=== PATIENT | male | born 1935 | race Hispanic/Latino ===

== ENCOUNTER 2017-03-22 13:45 | Inpatient (IN) | payer MEDICARE ==
[2017-03-22] MEDS ORDERED: Sodium Chloride 0.9% 500 ML IV STA (16:12)
[2017-03-22 16:57] LABS: BASO # 0.02 K/mm3 (0.0-2.0); BASO % 0.3 % (0.0-3.0); EOS # 0.1 (0.0-0.7); EOS % 1.1 % (1.5-5.0); GRAN # 4.84 (1.4-6.5); GRAN % 77.4 % (50.0-68.0); HEMOGLOBIN 14.7 g/dL (14.0-18.0); LYMPH # 0.8 (1.2-3.4); LYMPH % 12.6 % (22.0-35.0); MEAN CELL VOLUME 92.4 fl (80.0-105.0); MEAN CORPUSCULAR HEMOGLOBIN 31.8 pg (25.0-35.0); MEAN CORPUSCULAR HGB CONC 34.4 g/dl (31.0-37.0); MEAN PLATELET VOLUME 9.4 fl (7.0-11.0); MONO # 0.5 (0.1-0.6); MONO % 8.6 % (1.0-6.0); PLATELET COUNT 217 10^3/uL (120.0-450.0); RBC 4.62 10^6/uL (3.5-6.1); RED CELL DISTRIBUTION WIDTH 14.1 % (11.5-14.5); WHITE BLOOD COUNT 6.3 10^3/ul (4.5-11.0)
[2017-03-22 17:07] LABS: ALB/GLOB RATIO 1.5 (1.1-1.8); ALBUMIN 4.4 g/dL (3.0-4.8); ALT/SGPT 28 U/L (7-56); AST/SGOT 23 U/L (15-59); BLOOD UREA NITROGEN 20 mg/dL (7-21); CALCIUM 9.5 mg/dL (8.4-10.5); GFR AFRICAN-AMERICAN > 60; GFR NON-AFRICAN AMERICAN > 60
[2017-03-22 17:21] LABS: TROPONIN I < 0.01 ng/mL
--- NOTE | 2017-03-22 17:44 | CT ---
PROCEDURE: CT HEAD WITHOUT CONTRAST. HISTORY: forgetfulness/ tachycardia COMPARISON: Noncontrast head ct 12/23/12 TECHNIQUE: Axial computed tomography images were obtained through the head/brain without intravenous contrast. Radiation dose: Total exam DLP = 852.94 MGy-cm. This CT exam was performed using one or more of the following dose reduction techniques: Automated exposure control, adjustment of the mA and/or kV according to patient size, and/or use of iterative reconstruction technique. FINDINGS: HEMORRHAGE: No intracranial hemorrhage. BRAIN: Diffuse atrophy with prominence of the ventricles and sulci noted. No mass effect or edema. Intracranial atherosclerotic calcifications. Mild scattered white matter hypodensities, which are nonspecific, but often seen with chronic microvascular ischemic disease. Please note that MRI with diffusion imaging is more sensitive in the detection of acute ischemic event. VENTRICLES: No hydrocephalus. CALVARIUM: Unremarkable. PARANASAL SINUSES: Mucosal thickening of the ethmoid air cells and right maxillary sinus. MASTOID AIR CELLS: Opacification/fluid within bilateral mastoid air cells. OTHER FINDINGS: None. IMPRESSION: Generalized atrophy. Mild scattered nonspecific white matter changes. Opacification/fluid within bilateral mastoid air cells. Correlate clinically for mastoiditis. Mucosal thickening of the ethmoid air cells and right maxillary sinus. Correlate clinically for sinusitis.
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
[2017-03-22] MEDS ORDERED: Enoxaparin 100 mg Syringe SC STA (18:21)
--- NOTE | 2017-03-22 18:43 | RAD ---
HISTORY: Tachycardia. Portable study 16:10. COMPARISON: 12/23/2012 FINDINGS: LUNGS: No active pulmonary disease. PLEURA: No significant pleural effusion identified, no pneumothorax apparent. CARDIOVASCULAR: Cardiomegaly. No evidence of acute, significant cardiovascular disease. OSSEOUS STRUCTURES: No significant abnormalities. VISUALIZED UPPER ABDOMEN: Normal. OTHER FINDINGS: None. IMPRESSION: No active disease. No significant interval change compared to the prior examination(s).
[2017-03-23 00:17] VITALS: BMI 32.6
[2017-03-23 03:44] LABS: URINE BILIRUBIN NEGATIVE (NEGATIVE); URINE BLOOD TRACE-LYSED (NEGATIVE); URINE GLUCOSE (UA) NEGATIVE (NEGATIVE); URINE LEUKOCYTE ESTERASE NEGATIVE Leu/uL (NEGATIVE); URINE NITRATE NEGATIVE (NEGATIVE); URINE PROTEIN NEGATIVE mg/dL (<30 mg/dL); URINE UROBILINOGEN 0.2 E.U./dL (<1 E.U./dL)
[2017-03-23 03:56] LABS: URINE APPEARANCE CLEAR (CLEAR); URINE COLOR YELLOW (YELLOW)
[2017-03-23 04:03] LABS: URINE EPITHELIAL CELLS 0 - 2 /hpf (0-5); URINE WBC 0 - 2 /hpf (0-6)
[2017-03-23 07:04] LABS: HDL CHOLESTEROL 39 mg/dL (29-60)
[2017-03-23 07:14] LABS: LDL CHOLESTEROL 107 mg/dL (0-129)
[2017-03-23 07:16] LABS: TROPONIN I < 0.01 ng/mL
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
[2017-03-23] MEDS: Enoxaparin 100 mg Syringe SC SCH ×2 (11:22→23:20)
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
--- NOTE | 2017-03-23 23:32 | CARD ---
APPROVED REPORT EKG Measurement Heart [id number] NM P96 [id number] <Conclusion> Atrial flutter with variable AV block Prolonged QT Abnormal ECG
--- NOTE | 2017-03-23 23:56 | CARD ---
APPROVED REPORT EKG Measurement Heart [id number] FL P115 [id number] [id number] <Conclusion> Atrial flutter with variable AV block Abnormal ECG
--- NOTE | 2017-03-23 23:56 | CARD ---
APPROVED REPORT EKG Measurement Heart [id number] CK027K-2 [id number] <Conclusion> Atrial flutter with 2:1 conduction Abnormal ECG
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
--- NOTE | 2017-03-24 08:24 | PN ---
SUBJECTIVE: The events of last night were noted. The patient is on one-to-one. He tried to elope. He also had a nurse. The patient has no complaints of any chest pain or shortness of breath. He seems to have advanced dementia. PHYSICAL EXAMINATION: VITAL SIGNS: Temperature is 98, pulse of 121, blood pressure 138/80 and respirations 18. GENERAL: The patient is lying in bed, flat, comfortable. HEENT: No oral lesion. Anicteric sclerae. Moist mucosa. NECK: No JVD, adenopathy, or thyromegaly. CARDIOVASCULAR: S1 and S2, regular. No murmurs, rubs, or gallops. LUNGS: Clear to auscultation bilaterally. No wheeze, rales, or rhonchi. ABDOMEN: Bowel sounds are positive, soft, nontender and nondistended. EXTREMITIES: No cyanosis, clubbing or edema. LABORATORY DATA: Echo is pending. ASSESSMENT: 1. Dementia with agitation. 2. Atrial flutter. 3. Obesity with a BMI of 32. PLAN: The patient is being followed by Dr. Smith for his atrial flutter. The patient is on Lopressor twice a day. He is going to continue with Risperdal. I have asked Dr. Hoang to evaluate the patient. The patient is on Xanax twice a day. I have asked Dr. Simth, the patient's neurologist, to see the patient. The patient is on a heart healthy diet. I did speak to the patient's brother yesterday to give him an update. The patient lives alone and is not able to go home. He feels that he is dangerous to himself. Landry Ivory MD
[2017-03-24] MEDS: Enoxaparin 100 mg Syringe SC SCH (09:22)
--- NOTE | 2017-03-24 09:37 | CARD ---
APPROVED REPORT EXAM: Two-dimensional and M-mode echocardiogram with Doppler and color Doppler. INDICATION A-FLUTTER 2D DIMENSIONS Left Atrium (2D)4.8 (1.6-4.0cm)IVSd1.4 (0.7-1.1cm) LVDd4.7 (3.9-5.9cm)PWd1.4 (0.7-1.1cm) LVDs3.6 (2.5-4.0cm)FS (%) 23.1 % LVEF (%)46.4 (>50%) M-Mode DIMENSIONS Aortic Root3.30 (2.2-3.7cm)Aortic Cusp Exc.1.00 (1.5-2.0cm) Aortic Valve AoV Peak Qgaontfg228.0cm/Baljinder Peak GR.6mmHg Mitral Valve E/A ratio0.0 TDI E/Lateral E'0.0E/Medial E'0.0 Tricuspid Valve TR Peak [id number]/sRAP [id number] Peak Gr.15mmHg [id number] LEFT VENTRICLE The left ventricle is normal size. There is mild concentric left ventricular hypertrophy. The left ventricular function is normal. The left ventricular ejection fraction is within the normal range. There is normal LV segmental wall motion. RIGHT VENTRICLE The right ventricle is normal size. The right ventricular systolic function is normal. ATRIA The left atrium is moderately dilated. The right atrium is mildly dilated. The interatrial septum is intact with no evidence for an atrial septal defect. AORTIC VALVE The aortic valve is moderately sclerotic. There is mild aortic regurgitation. There is no aortic valvular stenosis. MITRAL VALVE The mitral valve is normal in structure. Mitral regurgitation is mild. TRICUSPID VALVE The tricuspid valve is normal in structure. PULMONIC VALVE The pulmonary valve is normal in structure. GREAT VESSELS The aortic root is normal in size. The IVC is normal in size and collapses >50% with inspiration. PERICARDIAL EFFUSION There is no pleural effusion. There is no pericardial effusion. <Conclusion> Biatrial enlargement. Normal LV size and systolic function. Mild concentric LVH. Mild MR. Mild AI.
--- NOTE | 2017-03-24 16:26 | PN ---
DATE: 03/24/2017 SUBJECTIVE: The patient is seen lying in bed, on telemetry. He remains in a [place] bed. He appears pleasantly confused. CURRENT MEDICATIONS: Include metoprolol 25 mg b.i.d., Lovenox, Risperdal and Xanax. OBJECTIVE: GENERAL: He is an elderly man who appears comfortable at rest. VITAL SIGNS: Blood pressure is 176/120, but has been 102/74, pulse of 120 in atrial flutter with respirations are 14. He is afebrile. HEENT: No JVD. CHEST: Bilateral scattered rhonchi. HEART: PMI displaced laterally with systolic murmur noted at the apex. ABDOMEN: Soft, nontender with normoactive bowel sounds. EXTREMITIES: No edema. DIAGNOSTIC DATA: Blood work is pending from this morning. Thyroid profile was normal yesterday. Cardiac enzymes were negative. Echocardiogram was reviewed showing evidence of biatrial enlargement with mild concentric LVH, normal LV size and systolic function. Mild mitral and aortic insufficiency were present. IMPRESSION: 1. Atrial flutter with inadequate heart rate control. 2. Paroxysmal episodes of uncontrolled hypertension. 3. Altered mental status, workup in progress. RECOMMENDATIONS: 1. His metoprolol dose will be increased in an attempt to improve heart rate control. 2. Pending his neurology evaluation, the decision would need to be made regarding chronic anticoagulation given his thromboembolic risk. 3. We will continue to follow. We will make further recommendations as appropriate. Gonzalo Mcdowell MD
[2017-03-25] MEDS: Enoxaparin 100 mg Syringe SC SCH ×3 (00:17→21:11)
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
--- NOTE | 2017-03-25 08:10 | CP.PCM.PN ---
Subjective - Date & Time of Evaluation Date of Evaluation: 03/25/17 Time of Evaluation: 07:00 - Subjective Subjective: Sedated on 2R with 1:1 sitter. He was agitated and combative during the night. Would not keep the tel monitor on. I spoke with his bedside nurse. V/S noted. Was A. Flutter during the time he wore the monitor. PE: Lungs: clear anteriorly Cor.: irreg. S1S2 Abd.: soft Ext.: no edema Neuro.: sedated I/O= 1120/1050 labs noted: trops.x2 neg., TSH NL Echo: NL LV with mild conc. LVH, mild MR Objective - Vital Signs/Intake and Output Vital Signs (last 24 hours): Temp Pulse Resp BP Pulse Ox 98.1 F 120 H 19 139/82 100 03/24/17 17:47 03/24/17 19:00 03/24/17 17:47 03/24/17 19:00 03/24/17 06:00 - Medications Medications: Current Medications Alprazolam (Xanax) 0.5 mg PO BID HAIDER PRN Reason: Protocol Last Admin: 03/24/17 19:00 Dose: 0.5 mg Enoxaparin Sodium (Lovenox) 90 mg SC Q12H HAIDER PRN Reason: Protocol Last Admin: 03/25/17 00:17 Dose: 90 mg Metoprolol Tartrate (Lopressor) 50 mg PO BID HAIDER Last Admin: 03/24/17 19:00 Dose: 50 mg Risperidone (Risperdal Tab) 0.25 mg PO AMHS HAIDER PRN Reason: Protocol Last Admin: 03/25/17 00:18 Dose: 0.25 mg Assessment and Plan - Assessment and Plan (Free Text) Assessment: AMS/Delerium/Dementia A. Flutter HBP Plan: As per Dr. Ivory, Dr. Hoang and Dr. Smith Continue PO metoprolol. Titrate dose to control HR Continue Lovenox for now. [facility] A/C to be considered as well. 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 It appears that he will no longer be able to live alone.
--- NOTE | 2017-03-25 09:37 | PN ---
DATE: 03/25/2017 SUBJECTIVE: The patient has no complaints of any chest pain, no shortness of breath, no headaches, or dizziness. PHYSICAL EXAMINATION VITAL SIGNS: Temperature is 98.1, pulse of 120, blood pressure 139/82 and respirations 19. GENERAL: The patient is lying in bed, flat, comfortable. HEENT: No oral lesion. Anicteric sclerae. Moist mucosa. NECK: No JVD, adenopathy, or thyromegaly. CARDIOVASCULAR: S1 and S2, regular. No murmurs, rubs, or gallops. LUNGS: Clear to auscultation bilaterally. No wheeze, rales, or rhonchi. ABDOMEN: Bowel sounds are positive, soft, nontender and nondistended. EXTREMITIES: no cyanosis, clubbing or edema. LABORATORY DATA: White count is 6.3 and hemoglobin 14.7. ASSESSMENT: 1. Dementia with agitation. 2. Atrial flutter. 3. Obesity with a BMI of 32. PLAN: The patient is currently comfortable. He has atrial flutter. The patient is on Lovenox for anticoagulation. He is going to be on metoprolol, but the patient is going to continue with Xanax. He is on a heart healthy diet. I will get Dr. Thomson to evaluate the patient. The patient needs to be on anticoagulation therapy given that he has underlying dementia, I am not sure if he is going to be compliant with his medications. He has not been seen by Dr. Smith, I am not sure if he comes to the hospital anymore, so I will get Dr. Thomson. Landry Ivory MD
--- NOTE | 2017-03-25 18:30 | CON ---
DATE: 03/25/2017 CHIEF COMPLAINT: Evaluated for dementia, history of recent atrial flutter, for anticoagulation. HISTORY OF PRESENT ILLNESS: This is an 81-year-old man with history of dementia was seen possibly Alzheimer's type with recent diagnosis of atrial flutter. He was tachycardic when he came in. He presented to the hospital with heart rate of 130s and was controlled by Cardizem. Currently, he is alert and oriented to person and place, not much month or year. Recall after 5 minutes is 0 out of 3. Thought process is very tangential and very verbose. He has had history of recent falls, though his strength in the upper and lower extremities are intact. No paraesthesia in extremities at this time. CT head show no intracranial abnormalities. EKG showed atrial flutter. REVIEW OF SYSTEMS: A 14-point review of system is negative except as in the HPI. ALLERGIES: NO KNOWN DRUG ALLERGIES. PAST MEDICAL HISTORY: Dementia and anxiety. SOCIAL HISTORY: No illicit drug use, smoking, or EtOH abuse. MEDICATIONS: Reviewed by the nurse reconciliation sheet. PHYSICAL EXAMINATION: VITAL SIGNS: Temperature 97.4, pulse rate 90, blood pressure 132/84, respiratory rate of 20. GENERAL: The patient is sitting up in bed, in no acute distress. HEENT: Head is atraumatic and normocephalic. PERRLA. Extraocular muscles intact. NECK: Supple. No JVD. No adenopathy noted. LUNGS: Clear to auscultation. No adventitious sounds. HEART: S1 and S2, irregular rate and rhythm. No murmurs, rubs, or gallops. ABDOMEN: Soft, nontender, and nondistended. Bowel sounds present. EXTREMITIES: No clubbing, no cyanosis. Peripheral pulses 2+ felt bilaterally. NEUROLOGIC: The patient is alert and oriented to person and place, not much to month or year. Recall after 5 minutes is 0 out of 3. Does not know the year. He is very confabulate and very tangential and verbose. His insight is poor. Cranial nerves II through XII intact. Speech is fluent without any errors. Motor exam, slight increase tone. Moves all extremities equally. No pronator drift seen. Sensory exam, light touch, pinprick, proprioception, vibration intact. DTRs are 2+ throughout and 1 at the ankles. Coordination, [id number] intact. Gait is deferred for now. LABORATORY DATA: Sodium is 142, potassium 4, chloride of 105, carbon dioxide of 25, BUN of 20, creatinine 0.8, random glucose of 95. ASSESSMENT AND PLAN: This is an 81-year-old man with history of dementia likely Alzheimer's type with CAT scan generalized atrophy with no acute intracranial abnormality came in for heart rate of more than 30 status post Cardizem has atrial flutter. At this time, his gait is poor, balance is likely secondary to deconditioned state and he would possibly require Coumadin as anticoagulant given that he has atrial flutter which has increased risk of stroke. Recommend Coumadin over Eliquis since we have proper reversal as he falls. Need psychiatric clearance for competency as well for his management of his medical issues, but consider that he may need to be long-term care since he lives at home by himself. His mental status is more of a dementia with behavioral disturbance. At this time, he could benefit from Seroquel 12.5 mg p.o. at bedtime in addition to Risperdal, but would recommend to follow with psych in regards to that. At this time, continue present medical management. Thank you for this consult. Conor Thomson MD
[2017-03-26 05:59] LABS: HEMOGLOBIN 13.9 g/dL (14.0-18.0); MEAN CELL VOLUME 93.6 fl (80.0-105.0); MEAN CORPUSCULAR HEMOGLOBIN 31.6 pg (25.0-35.0); MEAN CORPUSCULAR HGB CONC 33.7 g/dl (31.0-37.0); MEAN PLATELET VOLUME 10.2 fl (7.0-11.0); RBC 4.4 10^6/uL (3.5-6.1); RED CELL DISTRIBUTION WIDTH 14.5 % (11.5-14.5); WHITE BLOOD COUNT 5.6 10^3/ul (4.5-11.0)
[2017-03-26 06:15] LABS: ALB/GLOB RATIO 1.3 (1.1-1.8); ALBUMIN 3.7 g/dL (3.0-4.8); ALT/SGPT 32 U/L (7-56); AST/SGOT 25 U/L (15-59); BLOOD UREA NITROGEN 16 mg/dL (7-21); CALCIUM 9.1 mg/dL (8.4-10.5); GFR AFRICAN-AMERICAN > 60; GFR NON-AFRICAN AMERICAN > 60
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
--- NOTE | 2017-03-26 08:17 | CP.PCM.PN ---
Subjective - Date & Time of Evaluation Date of Evaluation: 03/26/17 Time of Evaluation: 07:00 - Subjective Subjective: Less agitated yesterday by report. V/S noted. A. Flutter 100 - 120's PE: Lungs: clear anteriorly Cor.: irreg. S1S2 Abd.: soft Ext.: no edema Neuro.: sedated I/O= 1360/1450 labs noted: trops.x2 neg., TSH NL Echo: NL LV with mild conc. LVH, mild MR Objective - Vital Signs/Intake and Output Vital Signs (last 24 hours): Temp Pulse Resp BP Pulse Ox 97.6 F 122 H 20 121/81 97 03/26/17 06:00 03/26/17 06:00 03/26/17 06:00 03/26/17 06:00 03/25/17 22:39 - Medications Medications: Current Medications Alprazolam (Xanax) 0.5 mg PO BID HAIDER PRN Reason: Protocol Last Admin: 03/25/17 17:35 Dose: 0.5 mg Apixaban (Eliquis) 5 mg PO BID HAIDER PRN Reason: Protocol Metoprolol Tartrate (Lopressor) 75 mg PO BID HAIDER Risperidone (Risperdal Tab) 0.25 mg PO AMHS HAIDER PRN Reason: Protocol Last Admin: 03/25/17 21:11 Dose: 0.25 mg - Labs Labs: 03/26/17 05:30 03/26/17 05:30 Assessment and Plan - Assessment and Plan (Free Text) Assessment: AMS/Delerium/Dementia A. Flutter HBP Plan: As per Dr. Ivory, Dr. Hoang and Dr. Thomson Increase PO metoprolol to 75 BID. Titrate dose to control HR Continue Eliquis as long as he will be in a protected environment. If fall risk is considered high, would reconsider A/C. Neuro preference for warfarin noted.We might consider switching to Pradaxa since a reversal agent is available for it. 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 It appears that he will no longer be able to live alone.
--- NOTE | 2017-03-26 15:18 | PN ---
SUBJECTIVE: The patient is an 81-year-old demented white male who has been quite disorganized in his thinking and occasionally agitated. I have discussed his case with nursing. The patient can get agitated, but has not been such since yesterday and is manageable presently. He is alert, has no recollection of who I am, does indicate he is in the hospital, but does not where and is disoriented to time. He has one-on-one sitter. Psychotropically, he has been maintained on Xanax 0.5 mg b.i.d. and Risperdal 0.5 mg a.m. and at bedtime. I will maintain him on this for now as the patient's behavior is not presently problematic. I will write for an Ativan p.r.n., however. Pulse elevated at 122, blood pressure 131/81, temperature 97.6, respiratory rate 20. Oskar Hoang MD/ PhD
--- NOTE | 2017-03-27 13:42 | PN ---
DATE: 03/27/2017 SUBJECTIVE: The patient has no complains of any chest pain. No shortness of breath. He remains confused. He is able to talk, but he is tangential on his thoughts. PHYSICAL EXAMINATION: VITAL SIGNS: Temperature is 97.6, pulse of 117, blood pressure 123/69, respirations 20. GENERAL: The patient is lying in bed, flat, comfortable. HEENT: No oral lesion. Anicteric sclerae. Moist mucosa. NECK: No JVD, adenopathy, or thyromegaly. CARDIOVASCULAR: S1 and S2, regular. No murmurs, rubs, or gallops. LUNGS: Clear to auscultation bilaterally. No wheeze, rales, or rhonchi. ABDOMEN: Bowel sounds are positive, soft, nontender and nondistended. EXTREMITIES: no cyanosis, clubbing or edema. LABS: White count of 5.6, hemoglobin 13.9, creatinine is 0.8. ASSESSMENT: 1. Dementia Alzheimer's type. 2. Atrial flutter. 3. Obesity with body mass index of 32. PLAN: The patient is currently comfortable. He is on Xanax twice a day and Risperdal twice a day and he is being followed by psychiatry. He was seen by Dr. Berkowitz. He is on Eliquis for atrial flutter. He is on one-to-one, I will continue, and he is on heart healthy diet. He is ready for discharge to a long-term care facility. Landry Ivory MD
--- NOTE | 2017-03-29 03:24 | PN ---
DATE: 03/28/2017 SUBJECTIVE: The patient has no complains of any chest pain. No shortness of breath. No headache or dizziness. PHYSICAL EXAMINATION VITAL SIGNS: Temperature is 98, pulse of 81, blood pressure is 115/75, and respirations 18. GENERAL: The patient is lying in bed, flat, comfortable. HEENT: No oral lesion. Anicteric sclerae. Moist mucosa. NECK: No JVD, adenopathy, or thyromegaly. CARDIOVASCULAR: S1 and S2, regular. No murmurs, rubs, or gallops. LUNGS: Clear to auscultation bilaterally. No wheeze, rales, or rhonchi. ABDOMEN: Bowel sounds are positive, soft, nontender and nondistended. EXTREMITIES: No cyanosis, clubbing or edema. LABORATORY DATA: White count of 5.6 and hemoglobin 13.9. Creatinine 0.8. ASSESSMENT: 1. Dementia Alzheimer's type. 2. Atrial flutter. 3. Obesity with body mass index of 32. PLAN: The patient is on Ativan. He is going to continue Eliquis for his atrial flutter. He is on Risperdal and Xanax. He is waiting for discharge planning to a facility for long-term care. Landry Ivory MD
--- NOTE | 2017-03-29 12:22 | PN ---
DATE: 03/29/2017 SUBJECTIVE: The patient has no complaints of any chest pain. No shortness of breath. No headaches. PHYSICAL EXAMINATION: VITAL SIGNS: Temperature is 97.6, pulse of 108, blood pressure is 114/66 and respirations are 20. GENERAL: The patient is lying in bed, flat, comfortable. HEENT: No oral lesion. Anicteric sclerae. Moist mucosa. NECK: No JVD, adenopathy, or thyromegaly. CARDIOVASCULAR: S1 and S2, regular. No murmurs, rubs, or gallops. LUNGS: Clear to auscultation bilaterally. No wheeze, rales, or rhonchi. ABDOMEN: Bowel sounds are positive, soft, nontender and nondistended. EXTREMITIES: No cyanosis, clubbing or edema. ASSESSMENT: 1. Dementia Alzheimer's type. 2. Atrial flutter on anticoagulation with Eliquis. 3. Obesity with body mass index of 32. PLAN: The patient is on Eliquis, this will be continued. He is on metoprolol. His confusion is controlled. He did have agitation secondary to his delirium. He is on risperidone and Xanax that he is on heart healthy diet. Landry Ivory MD
--- NOTE | 2017-03-30 06:46 | PN ---
DATE: 03/30/2017 SUBJECTIVE: The patient has no complaints of any chest pain. No shortness of breath. No headaches. No dizziness. PHYSICAL EXAMINATION: VITAL SIGNS: Temperature is 97.9, pulse of 92, blood pressure is 138/83 and respirations are 20. GENERAL: The patient is lying in bed, flat, comfortable. HEENT: No oral lesion. Anicteric sclerae. Moist mucosa. NECK: No JVD, adenopathy, or thyromegaly. CARDIOVASCULAR: S1 and S2, regular. No murmurs, rubs, or gallops. LUNGS: Clear to auscultation bilaterally. No wheeze, rales, or rhonchi. ABDOMEN: Bowel sounds are positive, soft, nontender and nondistended. EXTREMITIES: No cyanosis, clubbing or edema. ASSESSMENT: 1. Dementia, Alzheimer's type with agitation, improved. 2. Atrial flutter, on Eliquis. 3. Obesity with a body mass index of 32. PLAN: The patient is currently comfortable. He is waiting for discharge to a long-term care facility. He is on Eliquis. He is going to continue with metoprolol. He is on risperidone 0.25 mg twice a day and then Xanax 0.5 mg twice a day. Landry Ivory MD
[2017-03-31 06:59] LABS: HEMOGLOBIN 14.2 g/dL (14.0-18.0); MEAN CELL VOLUME 93.8 fl (80.0-105.0); MEAN CORPUSCULAR HEMOGLOBIN 31.6 pg (25.0-35.0); MEAN CORPUSCULAR HGB CONC 33.6 g/dl (31.0-37.0); MEAN PLATELET VOLUME 9.8 fl (7.0-11.0); RBC 4.5 10^6/uL (3.5-6.1); RED CELL DISTRIBUTION WIDTH 14.2 % (11.5-14.5); WHITE BLOOD COUNT 6.6 10^3/ul (4.5-11.0)
[2017-03-31 07:21] LABS: ALB/GLOB RATIO 1.3 (1.1-1.8); ALBUMIN 3.8 g/dL (3.0-4.8); ALT/SGPT 37 U/L (7-56); AST/SGOT 23 U/L (15-59); BLOOD UREA NITROGEN 22 mg/dL (7-21); CALCIUM 9.3 mg/dL (8.4-10.5); GFR AFRICAN-AMERICAN > 60; GFR NON-AFRICAN AMERICAN > 60
--- NOTE | 2017-03-31 10:39 | PN ---
DATE: 03/31/2017 SUBJECTIVE: The patient has no complaints of any chest pain. No shortness of breath. No headaches. No dizziness. PHYSICAL EXAMINATION: VITAL SIGNS: Temperature is 97.5, pulse of 60, blood pressure is 105/69, and respirations are 21. GENERAL: The patient is lying in bed, flat, comfortable. HEENT: No oral lesion. Anicteric sclerae. Moist mucosa. NECK: No JVD, adenopathy, or thyromegaly. CARDIOVASCULAR: S1 and S2, regular. No murmurs, rubs, or gallops. LUNGS: Clear to auscultation bilaterally. No wheeze, rales, or rhonchi. ABDOMEN: Bowel sounds are positive, soft, nontender, and nondistended. EXTREMITIES: no cyanosis, clubbing, or edema. LABS: Creatinine 0.9. ASSESSMENT: 1. Dementia, Alzheimer's type, with agitation, improved. 2. Atrial flutter, on Eliquis. 3. Obesity with body mass index of 32. PLAN: The patient is currently on Risperdal. He is also on the Xanax for his agitation. He is off his one-to-one. The patient is on Eliquis for his atrial flutter. He is on a heart healthy diet, waiting for placement. Landry Ivory MD
[2017-03-31 17:06] VITALS: RESP 20
--- NOTE | 2017-03-31 17:41 | CP.PCM.CON ---
History of Present Illness - History of Present Illness History of Present Illness: Patient is 81 year old male w/ PMHx of Dementia (likely Alzheimer's type) and recent diagnosis of atrial flutter. who [facility] asking to get an MRI done. Patient had no complaints. EKG found Atrial flutter w/ HR in the 130s and he was. We were asked to see this patient by hospitalist team to be evaluated for confusion and agitation. During interview patient was sitting in bed with calm wearing a hospital gown. He was disoriented to time. Patient denied any issue with mood during the interview. 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 He denied any auditory or visual hallucinations, denies any depressive symptoms. ROS: Denies CP, SOB, Abdoinal Pain, Fevers, Chills Past Psychiatric History: Denies PMH: Above PSH: Non-Contributory Allergies: NKDA Social History: Denies Drug use, smoking, or alcohol use Family Hx: Meds: Reviewed by nurse reconciliation sheet Past History obtained from chart: Review of Systems - Constitutional Constitutional: As Per HPI - Cardiovascular Cardiovascular: As Per HPI - Respiratory Respiratory: As Per HPI - Psychiatric Psychiatric: As Per HPI Past Patient History - Infectious Disease Hx of Infectious Diseases: None - Tetanus Immunizations Tetanus Immunization: Unknown - Past Social History Smoking Status: Never Smoked - CARDIAC Hx Cardiac Disorders: No - PULMONARY Hx Respiratory Disorders: No - NEUROLOGICAL Hx Neurological Disorder: Yes (memory loss, uses eyeglasses) - HEENT Hx HEENT Problems: No - RENAL Hx Chronic Kidney Disease: No - ENDOCRINE/METABOLIC Hx Endocrine Disorders: No - HEMATOLOGICAL/ONCOLOGICAL Hx Blood Disorders: No - INTEGUMENTARY Hx Dermatological Problems: No - MUSCULOSKELETAL/RHEUMATOLOGICAL Hx Musculoskeletal Disorders: Yes Hx Unsteady Gait: Yes (uses cane) - GASTROINTESTINAL Hx Gastrointestinal Disorders: No - GENITOURINARY/GYNECOLOGICAL Hx Genitourinary Disorders: No - PSYCHIATRIC Hx Depression: No Hx Emotional Abuse: No Hx Physical Abuse: No Hx Substance Use: No - SURGICAL HISTORY Hx Surgeries: No Meds Allergies/Adverse Reactions: Allergies Allergy/AdvReac Type Severity Reaction Status Date / Time No Known Allergies Allergy Verified 06/08/12 07:29 - Medications Medications: Current Medications Alprazolam (Xanax) 0.5 mg PO BID HAIDER PRN Reason: Protocol Last Admin: 03/31/17 10:56 Dose: 0.5 mg Apixaban (Eliquis) 5 mg PO BID HAIDER PRN Reason: Protocol Last Admin: 03/31/17 10:56 Dose: 5 mg Lorazepam (Ativan) 0.5 mg PO Q4H PRN PRN Reason: Agitation Last Admin: 03/31/17 00:19 Dose: 0.5 mg Metoprolol Tartrate (Lopressor) 75 mg PO BID HAIDER Last Admin: 03/31/17 10:56 Dose: 75 mg Risperidone (Risperdal Tab) 0.25 mg PO AMHS HAIDER PRN Reason: Protocol Last Admin: 03/31/17 10:56 Dose: 0.25 mg Physical Exam - Psychiatric Exam Additional comments: Appearance - Patient was sitting in hospital gown Speech: normal rate, volume, and articulate Mood: Euthymic Affect: appropriate to situation Thought process - tangential THought Content - No auditory, visual, or tactile hallucinations. Free of delusions Insight - impaired Judgement - impaired Results - Vital Signs Recent Vital Signs: Last Vital Signs Temp 97.5 F L 03/31/17 17:06 Pulse 79 03/31/17 17:06 Resp 20 03/31/17 17:06 BP 102/64 03/31/17 17:06 Pulse Ox 99 03/31/17 17:06 - Labs Result Diagrams: 03/31/17 06:15 03/31/17 06:15 Labs: Laboratory Results - last 24 hr 03/31/17 03/31/17 06:15 06:15 WBC 6.6 RBC 4.50 Hgb 14.2 Hct 42.2 MCV 93.8 MCH 31.6 MCHC 33.6 RDW 14.2 Plt Count 215 MPV 9.8 Sodium 143 Potassium 4.3 Chloride 105 Carbon Dioxide 27 Anion Gap 15 BUN 22 H Creatinine 0.9 Est GFR ( Amer) > 60 Est GFR (Non-Af Amer) > 60 Random Glucose 94 Calcium 9.3 Total Bilirubin 0.8 AST 23 ALT 37 Alkaline Phosphatase 73 Total Protein 6.7 Albumin 3.8 Globulin 2.9 Albumin/Globulin Ratio 1.3 Assessment & Plan - Assessment and Plan (Free Text) Assessment: 81 year old male, aditted for atrial flutter. Consult for evaluation and treatent of agitation and anxiety. Plan: 1. 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 Please feel free to reconsult of necessary Patient seen, examined, and discussed with Attending. Radha Muhammad PGY1
--- NOTE | 2017-04-01 07:41 | PN ---
DATE: 04/01/2017 SUBJECTIVE: The patient has no complaints of any chest pain or shortness of breath. No headaches or dizziness. He has no nausea. He has been eating well. PHYSICAL EXAMINATION: VITAL SIGNS: Temperature is 97.5, pulse is 79, blood pressure 102/64, respirations 20. GENERAL: The patient is lying in bed, flat, comfortable. HEENT: No oral lesion. Anicteric sclerae. Moist mucosa. NECK: No JVD, adenopathy, or thyromegaly. CARDIOVASCULAR: S1 and S2, regular. No murmurs, rubs, or gallops. LUNGS: Clear to auscultation bilaterally. No wheeze, rales, or rhonchi. ABDOMEN: Bowel sounds are positive, soft, nontender and nondistended. EXTREMITIES: No cyanosis, clubbing or edema. ASSESSMENT: 1. Dementia, Alzheimer's type with agitation, improved. 2. Atrial flutter on Eliquis. 3. Obesity with a BMI of 32. PLAN: The patient is currently comfortable. He is off his one-to-one successfully. He is waiting for long-term placement. The patient is on Eliquis for his anticoagulation. He is on metoprolol that will be continued. He is on Risperdal. He is on Xanax as well. No other issues. Landry Ivory MD
--- NOTE | 2017-04-02 09:24 | PN ---
DATE: 04/02/2017 SUBJECTIVE: The patient has no complaints of any chest pain. No shortness of breath. PHYSICAL EXAMINATION: VITAL SIGNS: Temperature is 97.6, pulse of 93, blood pressure 113/74, respirations 20. GENERAL: The patient is lying in bed, flat, comfortable. HEENT: No oral lesion. Anicteric sclerae. Moist mucosa. NECK: No JVD, adenopathy, or thyromegaly. CARDIOVASCULAR: S1 and S2, regular. No murmurs, rubs, or gallops. LUNGS: Clear to auscultation bilaterally. No wheeze, rales, or rhonchi. ABDOMEN: Bowel sounds are positive, soft, nontender and nondistended. EXTREMITIES: No cyanosis, clubbing or edema. ASSESSMENT: 1. Dementia, Alzheimer's type with agitation, improved. 2. Atrial flutter, on Eliquis. 3. Obesity with a body mass index of 32. PLAN: The patient is currently comfortable. He is on Eliquis for his anticoagulation. He is going to continue with risperidone and Xanax. He is on a heart healthy diet. He is waiting for a placement. Landry Ivory MD
[2017-04-02 16:32] VITALS: BP 126/65; PULSE 81; TEMP 97.9; O2SAT 98
== END 2017-04-02 17:35 | DRG 309 ==
LOC: ED 13:45 → ERH 18:06 → 2RNO 22:58 → 5RSO 03-26 14:28
PROVIDERS: ADMIT Internal Medicine Nephrology; ATTEND Internal Medicine Nephrology
DX: I48.92 Unspecified atrial flutter (principal); F02.81 Dementia in other diseases classified elsewhere, unspecified severity, with behavioral disturbance; G30.9 Alzheimer's disease, unspecified; F05 Delirium due to known physiological condition; I10 Essential (primary) hypertension; F41.9 Anxiety disorder, unspecified; E66.9 Obesity, unspecified; Z68.32 Body mass index [BMI] 32.0-32.9, adult; Z75.1 Person awaiting admission to adequate facility elsewhere; Z78.1 Physical restraint status

== ENCOUNTER 2018-03-11 09:13 | Emergency (ER) | payer MEDICARE ==
[2018-03-11 09:24] VITALS: BMI 36.6
--- NOTE | 2018-03-11 09:39 | ED PDOC ---
Arrival/HPI - General Chief Complaint: Trauma Time Seen by Provider: 03/11/18 09:36 Historian: Patient - History of Present Illness Narrative History of Present Illness (Text): 03/11/18 09:30 82 year old male, whose PMH includes hypertension, who presents to the emergency department s/p mechanical fall prior to arrival. Inspector Weights And Measures states she heard a loud noise and found patient on the floor. When she called EMS, patient was able to get up and ambulate on his own. She states patient is currently on blood thinners (Eloquis) and denies patient losing consciousness. Patient is currently asymptomatic, but is complaining of laceration on forehead with no active bleeding. Patient denies chest pain, shortness of breath, dizziness, neck pain, back pain, abdominal pain, nausea, vomiting, diarrhea, or other complaints. Time/Duration: Prior to Arrival Symptom Onset: Sudden Symptom Course: Unchanged Context: Slipped Past Medical History - Provider Review Nursing Documentation Reviewed: Yes - Infectious Disease Hx of Infectious Diseases: None - Tetanus Immunization Tetanus Immunization: Unknown - Cardiac Hx Cardiac Disorders: No Hx Hypertension: Yes - Pulmonary Hx Respiratory Disorders: No - Neurological Hx Neurological Disorder: Yes (memory loss, uses eyeglasses) - HEENT Hx HEENT Disorder: No - Renal Hx Renal Disorder: No - Endocrine/Metabolic Hx Endocrine Disorders: No - Hematological/Oncological Hx Blood Disorders: No - Integumentary Hx Dermatological Disorder: No - Musculoskeletal/Rheumatological Hx Musculoskeletal Disorders: Yes Hx Unsteady Gait: Yes (uses cane) - Gastrointestinal Hx Gastrointestinal Disorders: No - Genitourinary/Gynecological Hx Genitourinary Disorders: No - Psychiatric Hx Depression: No Hx Emotional Abuse: No Hx Physical Abuse: No Hx Substance Use: No - Suicidal Assessment Feels Threatened In Home Enviroment: No Family/Social History - Physician Review Nursing Documentation Reviewed: Yes Family/Social History: Unknown Family HX Smoking Status: Never Smoked Hx Alcohol Use: No Hx Substance Use: No Hx Substance Use Treatment: No Allergies/Home Meds Allergies/Adverse Reactions: Allergies No Known Allergies Allergy (Verified 06/08/12 07:29) Review of Systems - Physician Review All systems were reviewed & negative as marked: Yes - Review of Systems Respiratory: absent: SOB Cardiovascular: absent: Chest Pain Skin: Laceration (forehead) Neurological: absent: Headache Physical Exam Vital Signs Reviewed: Yes Vital Signs Temp Pulse Resp BP Pulse Ox 03/11/18 13:18 98.7 F 105 H 18 130/84 97 03/11/18 13:00 98.5 F 115 H 18 130/75 100 03/11/18 11:34 98.7 F 126 H 18 127/79 97 03/11/18 11:32 126 H 127/79 03/11/18 11:12 98.6 F 127 H 18 127/57 L 95 03/11/18 09:45 98.6 F 134 H 20 105/56 L 96 Temperature: Afebrile Blood Pressure: Normal Pulse: Tachycardic Appearance: Positive for: Well-Appearing, Non-Toxic, Comfortable Pain Distress: None Mental Status: Positive for: Alert and Oriented X 3 - Systems Exam Head: Present: Atraumatic, Normocephalic, Laceration (4 cm laceration to the upper central portion of forehead) Pupils: Present: PERRL Extroacular Muscles: Present: EOMI Conjunctiva: Present: Normal Respiratory/Chest: Present: Clear to Auscultation, Good Air Exchange. No: Respiratory Distress, Accessory Muscle Use, Wheezes, Decreased Breath Sounds, Rales, Retracting, Rhonchi Cardiovascular: Present: Regular Rate and Rhythm, Normal S1, S2. No: Murmurs Abdomen: Present: Normal Bowel Sounds. No: Tenderness, Distention, Peritoneal Signs, Rebound, Guarding Upper Extremity: Present: Normal Inspection, Normal ROM, NORMAL PULSES, Neurovascularly Intact, Capillary Refill < 2s. No: Cyanosis, Edema, Tenderness , Swelling, Erythema, Deformity Lower Extremity: Present: Normal Inspection, NORMAL PULSES, Normal ROM, Neurovascularly Intact, Capillary Refill < 2 s. No: Edema, CALF TENDERNESS, Cyanosis, Eric's Sign, Tenderness, Swelling, Erythema, Deformity Neurological: Present: GCS=15, CN II-XII Intact, Speech Normal, Motor Func Grossly Intact, Normal Sensory Function, Normal Cerebellar Funct, Gait Normal, Memory Normal Skin: Present: Warm, Dry, Normal Color. No: Rashes Psychiatric: Present: Alert, Oriented x 3, Normal Insight, Normal Concentration Medical Decision Making ED Course and Treatment: 03/11/18 Impression: 82 year old male with 4 cm laceration to the upper central portion of forehead s /p mechanical fall prior to arrival Plan: -- CT head -- Reassess and disposition Progress Notes: 03/11/18 11:00 CT head: Creator : Hans Higginbotham MD COMPARISON: 03/22/2017 FINDINGS: HEMORRHAGE: No intracranial hemorrhage. BRAIN: There is a 2 cm meningioma over the right frontal convexity. No atrophy or chronic microvascular ischemic changes. VENTRICLES: Unremarkable. No hydrocephalus. CALVARIUM: Unremarkable. PARANASAL SINUSES: Unremarkable as visualized. No significant inflammatory changes. MASTOID AIR CELLS: There is opacification of mastoid air cells and bony sclerosis consistent with mastoiditis. There is also opacification of the right middle ear cavity OTHER FINDINGS: None. IMPRESSION: No acute intracranial findings Patient given 5mg lopressor ivp for atrial flutter HR 125-140. Previous medical records reviewed, patient has history of atrial flutter and takes metoprolol PO. 03/11/18 12:30 PROCEDURE: LACERATION REPAIR Performed by the emergency provider Dr. Hernandez Location: Upper central portion of forehead Length: 4 cm Description: clean wound edges, no foreign bodies Distal CMS: Normal. No deficits. Neurovascularly intact. Anesthesia: Lidocaine with Epi 7cc Preparation: The wound was cleaned with NS and [place]. The area was prepped and draped in the usual sterile fashion. Exploration: The wound was explored and no foreign bodies were found. Procedure: The wound was closed with 9 stitches using 5-0 monofilament suture. There was appropriate approximation. Post-Procedure: Good closure and hemostasis. The patient tolerated the procedure well and there were no complications. CSM remains intact. Post procedure dressing applied. 03/11/18 14:06 EKG: Ordered, reviewed, and independently interpreted the EKG. Rate : 129 BPM Rhythm : atrial flutter Interpretation : atrial flutter with 2-1 AV conduction. QTC prolonged 483. No ST elevation. HR 110 at discharge. - RAD Interpretation Radiology Orders: 03/11/18 09:36 HEAD W/O CONTRAST [CT] Stat Fire Information Officer: Radiologist - Medication Orders Current Medication Orders: Discontinued Medications Sodium Chloride (Sodium Chloride 0.9%) 1,000 mls @ 999 mls/hr IV .Q1H1M STA Stop: 03/11/18 12:05 Last Admin: 03/11/18 11:12 Dose: 999 mls/hr eMAR Start Stop Document 03/11/18 11:12 LA (Rec: 03/11/18 11:12 JOÃO [id number]) Intravenous Solution Start Date 03/11/18 Start Time 11:12 End Date 03/11/18 End time 12:13 Total Infusion Time 61 Metoprolol Tartrate (Lopressor) 5 mg IVP STAT STA Stop: 03/11/18 11:18 Last Admin: 03/11/18 11:32 Dose: 5 mg IVP Administration Document 03/11/18 11:32 LA (Rec: 03/11/18 11:34 LA [id number]) Charges for Administration # of IVP Administrations 1 MAR Pulse and Blood Pressure Document 03/11/18 11:32 LA (Rec: 03/11/18 11:34 LA [id number]) Pulse Pulse Rate (60-90) 126 Blood Pressure Blood Pressure (100/60-150/90) 127/79 - Scribe Statement The provider has reviewed the documentation as recorded by the Scribe Vero Castillo Provider Scribe Attestation: All medical record entries made by the Scribe were at my direction and personally dictated by me. I have reviewed the chart and agree that the record accurately reflects my personal performance of the history, physical exam, medical decision making, and the department course for this patient. I have also personally directed, reviewed, and agree with the discharge instructions and disposition. Disposition/Present on Arrival - Present on Arrival Any Indicators Present on Arrival: No History of DVT/PE: No History of Uncontrolled Diabetes: No Urinary Catheter: No History of Decub. Ulcer: No History Surgical Site Infection Following: None - Disposition Have Diagnosis and Disposition been Completed?: Yes Diagnosis: Fall, Forehead laceration, Atrial flutter Disposition: HOME/ ROUTINE Disposition Time: 13:18 Patient Plan: Discharge Condition: FAIR Discharge Instructions (ExitCare): Preventing Falls in the Older Adult, Laceration Repair With Stitches (DC) Additional Instructions: JEREMIAH LEAL, thank you for letting us take care of you today. Your provider was Suki Hernandez MD and you were treated for FALL/LAC TO FOREHEAD. The emergency medical care you received today was directed at your acute symptoms. If you were prescribed any medication, please fill it and take as directed. It may take several days for your symptoms to resolve. Return to the Emergency Department if your symptoms worsen, do not improve, or if you have any other problems. Please contact your doctor or call one of the physicians/clinics you have been referred to that are listed on the Patient Visit Information form that is included in your discharge packet. Bring any paperwork you were given at discharge with you along with any medications you are taking to your follow up visit. Our treatment cannot replace ongoing medical care by a primary care provider outside of the emergency department. Thank you for allowing the [facility] team to be part of your care today. If you had an X-Ray or CT scan: A Radiologist will review the ED reading if any change in treatment is needed we will contact you. If you had a blood, urine, or wound culture: It will take several days for the results, if any change in treatment is needed we will contact you. If you had an STI test: It will take 48 hours for the results. Please call after 1 week if you have not heard back. Forms: [employer] (Japanese)
--- NOTE | 2018-03-11 10:23 | CT ---
Date of service: 03/11/2018 PROCEDURE: CT HEAD WITHOUT CONTRAST. HISTORY: fall, head injury COMPARISON: 03/22/2017 TECHNIQUE: Axial computed tomography images were obtained through the head/brain without intravenous contrast. Radiation dose: Total exam DLP = 964 mGy-cm. This CT exam was performed using one or more of the following dose reduction techniques: Automated exposure control, adjustment of the mA and/or kV according to patient size, and/or use of iterative reconstruction technique. FINDINGS: HEMORRHAGE: No intracranial hemorrhage. BRAIN: There is a 2 cm meningioma over the right frontal convexity. No atrophy or chronic microvascular ischemic changes. VENTRICLES: Unremarkable. No hydrocephalus. CALVARIUM: Unremarkable. PARANASAL SINUSES: Unremarkable as visualized. No significant inflammatory changes. MASTOID AIR CELLS: There is opacification of mastoid air cells and bony sclerosis consistent with mastoiditis. There is also opacification of the right middle ear cavity OTHER FINDINGS: None. IMPRESSION: No acute intracranial findings
[2018-03-11] MEDS ORDERED: Sodium Chloride 0.9% 1,000 ML IV STA (11:05)
[2018-03-11 11:13] VITALS: RESP 18
[2018-03-11] MEDS ORDERED: Metoprolol 1 mg/ml Inj IVP STA (11:17)
[2018-03-11] MEDS ORDERED: LIDOCAIN/EPI 1-0.001% 10ML INJ SOL IJ ONE (12:07)
[2018-03-11 13:22] VITALS: BP 130/84; PULSE 105; TEMP 98.7; O2SAT 97
--- NOTE | 2018-03-11 17:32 | CARD ---
APPROVED REPORT Date of service: 03/11/2018 EKG Measurement Heart [id number] MD P76 [id number] <Conclusion> Atrial flutter with 2:[address] abnormality Abnormal ECG
== END 2018-03-11 13:18 | disposition home or self-care (01) ==
LOC: ED 09:13
DX: S01.81XA Laceration without foreign body of other part of head, initial encounter (principal); W19.XXXA Unspecified fall, initial encounter; Y92.003 Bedroom of unspecified non-institutional (private) residence as the place of occurrence of the external cause; I48.92 Unspecified atrial flutter; I10 Essential (primary) hypertension; Z79.01 Long term (current) use of anticoagulants

== ENCOUNTER 2018-06-10 23:29 | Observation (INO) | payer MEDICARE ==
--- NOTE | 2018-06-11 00:38 | ED PDOC ---
Arrival/HPI - General Chief Complaint: Trauma Time Seen by Provider: 06/11/18 00:29 Historian: Patient, Caregiver - History of Present Illness Narrative History of Present Illness (Text): 06/11/18 00:38 Momo Osborn is an 83 year old male, whose past medical history includes Alzheimer's dementia and atrial flutter, who presents to the Emergency department brought in by EMS accompanied by developmental education instructor status post fall. Caregiver states patient was feeling dizzy tonight and fell while walking at home. Caregiver states patient fell on to buttocks and was able to stand up. Patient denies any hip pain, chest pain, or shortness of breath. Limited HPI and ROS secondary to patient's dementia. Symptom Onset: Gradual Symptom Course: Unchanged Activities at Onset: Light Context: Home Past Medical History - Infectious Disease Hx of Infectious Diseases: None - Tetanus Immunization Tetanus Immunization: Unknown - Cardiac Hx Cardiac Disorders: No Hx Hypertension: Yes - Pulmonary Hx Respiratory Disorders: No - Neurological Hx Neurological Disorder: Yes (memory loss, uses eyeglasses) Hx Dementia: Yes - HEENT Hx HEENT Disorder: No - Renal Hx Renal Disorder: No - Endocrine/Metabolic Hx Endocrine Disorders: No - Hematological/Oncological Hx Blood Disorders: No - Integumentary Hx Dermatological Disorder: No - Musculoskeletal/Rheumatological Hx Musculoskeletal Disorders: Yes Hx Unsteady Gait: Yes (uses cane) - Gastrointestinal Hx Gastrointestinal Disorders: No - Genitourinary/Gynecological Hx Genitourinary Disorders: No - Psychiatric Hx Depression: No Hx Emotional Abuse: No Hx Physical Abuse: No Hx Substance Use: No - Anesthesia Hx Anesthesia: No - Suicidal Assessment Feels Threatened In Home Enviroment: No Family/Social History Family/Social History: Hypertension Smoking Status: Never Smoked Hx Alcohol Use: No Hx Substance Use: No Hx Substance Use Treatment: No Allergies/Home Meds Allergies/Adverse Reactions: Allergies No Known Allergies Allergy (Verified 06/11/18 00:07) Review of Systems - Review of Systems Systems not reviewed;Unavailable: Dementia Respiratory: absent: SOB Cardiovascular: absent: Chest Pain Gastrointestinal: absent: Abdominal Pain Physical Exam Vital Signs Reviewed: Yes Temperature: Afebrile Blood Pressure: Normal Pulse: Regular Respiratory Rate: Normal Appearance: Positive for: Well-Appearing, Non-Toxic, Comfortable Pain Distress: None - Systems Exam Head: Present: Atraumatic, Normocephalic Pupils: Present: PERRL Extroacular Muscles: Present: EOMI Conjunctiva: Present: Normal Mouth: Present: Moist Mucous Membranes Neck: Present: Normal Range of Motion Respiratory/Chest: Present: Clear to Auscultation, Good Air Exchange. No: Respiratory Distress, Accessory Muscle Use Cardiovascular: Present: Regular Rate and Rhythm, Normal S1, S2. No: Murmurs Abdomen: No: Tenderness, Distention, Peritoneal Signs Back: Present: Normal Inspection. No: CVA Tenderness, Midline Tenderness, Paraspinal Tenderness Upper Extremity: Present: Normal Inspection. No: Cyanosis, Edema Lower Extremity: Present: Normal Inspection. No: Edema Neurological: Present: GCS=15, CN II-XII Intact, Speech Normal Skin: Present: Warm, Dry, Normal Color. 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 Plan: -- CT Head w/o contrast -- EKG -- Chest X-ray -- Labs, cardiac enzymes -- Reassess and disposition Prior Visits: Notes and results from previous visits were reviewed. Progress Notes: Reviewed EKG, atrial flutter at 121 bpm. Variable block. Non-specific ST/T changes. Cardizem ordered. 06/11/18 03:16 Chest X-ray reviewed, shows cardiomegaly. 06/11/18 03:[address] Ivory, who is aware and agrees with plan. Accepts pt in to his service. Pt will go to Telemetry observation for near-syncope. 06/11/18 05:46 CT Head reviewed: BRAIN 1.6 cm right superior convexity extra-axial mass compatible with a meningioma. Chronic periventricular and subcortical microvascular disease is seen. VENTRICLES: There is generalized parenchymal atrophy noted as demonstrated by symmetrical dilatation of ventricles and sulci. ORBITS: The orbits are unremarkable. SINUSES AND MASTOIDS: Bilateral ethmoid and maxillary sinusitis. Complete opacification of bilateral mastoid air cells compatible with mastoiditis. BONES: No fracture. SOFT TISSUES: Unremarkable. IMPRESSION: 1. 1.6 cm right superior convexity extra-axial mass compatible with a meningioma. 2. Bilateral ethmoid and maxillary sinusitis. 3. Complete opacification of bilateral mastoid air cells compatible with mastoiditis. 4. There is generalized parenchymal atrophy noted as demonstrated by symmetrical dilatation of ventricles and sulci. 5. Chronic periventricular and subcortical microvascular disease is seen. 6. No acute intracranial pathology. Electronically signed on Jun 11, 2018 5:17:40 AM EDT by: Brandon Momin M.D., NILA Certified By [facility] & [facility] Fellowship Trained MRI and CT Specialist - Lab Interpretations I have reviewed the lab results: Yes - RAD Interpretation Field Application Engineer: ED Physician - EKG Interpretation Interpreted by ED Physician: Yes Type: 12 lead EKG - Scribe Statement The provider has reviewed the documentation as recorded by the Lyndon Landaverde Provider Scribe Attestation: All medical record entries made by the Scribe were at my direction and personally dictated by me. I have reviewed the chart and agree that the record accurately reflects my personal performance of the history, physical exam, medical decision making, and the department course for this patient. I have also personally directed, reviewed, and agree with the discharge instructions and disposition. Disposition/Present on Arrival - Present on Arrival Any Indicators Present on Arrival: No History of DVT/PE: No History of Uncontrolled Diabetes: No Urinary Catheter: No History of Decub. Ulcer: No History Surgical Site Infection Following: None - Disposition Have Diagnosis and Disposition been Completed?: Yes Diagnosis: Near syncope, Atrial flutter, Fall Disposition: HOSPITALIZED Disposition Time: 03:59 Patient Plan: Observation Condition: STABLE
[2018-06-11 02:05] LABS: HEMOGLOBIN 12.9 g/dL (14.0-18.0); MEAN CORPUSCULAR HEMOGLOBIN 31.2 pg (25.0-35.0); MEAN CORPUSCULAR HGB CONC 33.2 g/dl (31.0-37.0); MEAN PLATELET VOLUME 9.3 fl (7.0-11.0); RBC 4.14 10^6/uL (3.5-6.1); RED CELL DISTRIBUTION WIDTH 13.4 % (11.5-14.5); WHITE BLOOD COUNT 9.6 10^3/uL (4.5-11.0)
[2018-06-11 02:12] LABS: INR 1.4; PARTIAL THROMBOPLASTIN TIME 36.1 Seconds (25.1-36.5); PROTHROMBIN TIME 16.1 SECONDS (9.4-12.5)
[2018-06-11 02:13] LABS: ALB/GLOB RATIO 1.2 (1.1-1.8); ALT/SGPT 23 U/L (7-56); AST/SGOT 27 U/L (17-59); BLOOD UREA NITROGEN 26 mg/dL (7-21); CALCIUM 9.3 mg/dL (8.4-10.5); GFR NON-AFRICAN AMERICAN > 60
[2018-06-11 02:24] LABS: TROPONIN I 0.02 ng/mL
[2018-06-11] MEDS ORDERED: diltiaZEM IVPB 100mg in NS 100 ML IV PRN (02:40)
[2018-06-11 04:09] VITALS: O2SAT 96
--- NOTE | 2018-06-11 05:57 | RAD ---
Date of service: 06/11/2018 HISTORY: dizzy COMPARISON: 03/22/2017. FINDINGS: LUNGS: The lungs are well inflated and clear. PLEURA: No pleural effusions or pneumothorax. CARDIOVASCULAR: There is moderate cardiomegaly. Atherosclerotic aortic arch calcifications are present. OSSEOUS STRUCTURES: Within normal limits for the patient's age. VISUALIZED UPPER ABDOMEN: Normal. OTHER FINDINGS: None. IMPRESSION: No active pulmonary disease.
[2018-06-11 06:24] VITALS: BMI 38.7
--- NOTE | 2018-06-11 09:10 | CT ---
Date of service: 06/11/2018 PROCEDURE: CT HEAD WITHOUT CONTRAST. HISTORY: dizzy COMPARISON: 03/11/2018 TECHNIQUE: Axial computed tomography images were obtained through the head/brain without intravenous contrast. Radiation dose: Total exam DLP = 884.53 mGy-cm. This CT exam was performed using one or more of the following dose reduction techniques: Automated exposure control, adjustment of the mA and/or kV according to patient size, and/or use of iterative reconstruction technique. FINDINGS: HEMORRHAGE: No intracranial hemorrhage. BRAIN: There are mild chronic microangiopathic changes. There is a stable 1.6 x 1.5 cm right parietal convexity meningioma. There is no mass effect or abnormal extra-axial fluid collection. There is no territorial infarction. The midline sagittal structures are normal. VENTRICLES: There is mild age-related global parenchymal volume loss and proportionate enlargement of the ventricles and cortical sulci. CALVARIUM: There is no calvarial fracture or extracranial soft tissue swelling. PARANASAL SINUSES: There is moderate chronic ethmoid sinusitis and retention cyst/polyp in the right maxillary sinus. MASTOID AIR CELLS: Bilateral large mastoid effusions. OTHER FINDINGS: None. IMPRESSION: No acute intracranial abnormality. Chronic right maxillary and ethmoid sinusitis and bilateral mastoid effusions. A preliminary report was provided by [employer] [facility] [employer] [facility].
--- NOTE | 2018-06-11 10:46 | CARD ---
APPROVED REPORT Date of service: 06/11/2018 EKG Measurement Heart [id number] MD [id number] <Conclusion> Atrial flutter with variable AV block No change
[2018-06-11 12:17] VITALS: BP 117/71; RESP 18; TEMP 97.8
[2018-06-11 14:35] VITALS: PULSE 70
--- NOTE | 2018-06-11 15:42 | CON ---
DATE OF CONSULTATION: 06/11/2018 INDICATIONS: Fall, atrial flutter. HISTORY OF PRESENT ILLNESS: This is an 83-year-old man, known from a prior admission a little over a year ago with known atrial flutter and dementia, who slumped to the floor at home without injury and was unable to get up. His stenotype machine operator brought him to the emergency room. He was admitted to telemetry. He is in atrial flutter with moderate ventricular rate, sometimes a little bit fast. He has significant dementia. There was no chest pain reported, no shortness of breath, and no other symptoms were reported by the stenotype machine operator. PAST MEDICAL HISTORY: Notable for an admission in 03/2017, at which time he had atrial flutter and dementia. He was started on metoprolol and Eliquis. He has been apparently living at home with a full-time stenotype machine operator since that time. There is also a history of unsteady gait, but no rheumatic fever, myocardial infarction, congestive heart failure, stroke, TIA, diabetes or gout. FAMILY HISTORY: Not available. SOCIAL HISTORY: He does not smoke cigarettes. He does not drink alcohol. MEDICATIONS AT THE TIME OF ADMISSION: Ativan, Eliquis, metoprolol, Risperdal. ALLERGIES: THERE ARE NO KNOWN MEDICATION ALLERGIES. REVIEW OF SYSTEMS: Not available because of dementia. PHYSICAL EXAMINATION: He is a well-developed elderly man lying in bed on telemetry, in no acute distress. He is in atrial flutter. Heart rate varies between 60 and 126 beats per minute. He is afebrile. Blood pressure 144/73, respirations 17 to 20, O2 sat 96 to 99% on room air. HEENT exam reveals no neck vein distention, thyromegaly, carotid bruit. Mucous membranes moist. Conjunctivae pink. Neck is supple. Lung levi clear. Examination of the heart reveals an irregular rhythm, normal first and second heart sounds, soft systolic murmur along the left sternal border, PMI not palpable. Abdomen is obese, benign. No mass, organomegaly, tenderness, rebound or guarding. No CVA tenderness. No palpable abdominal aortic aneurysm. Extremity exam reveals no cyanosis, clubbing or edema. Neurologically, he was awake, alert. Psychiatric, dementia. Skin warm and dry. No rash or cellulitis. LABORATORY AND IMAGING: The chest x-ray is a portable study. It is read as no active pulmonary disease. A CT scan of the chest is not formally read. According to the ER note, it showed a possible 1.6 cm meningioma, bilateral ethmoid and maxillary sinusitis, no acute intracranial pathology, see full report for details. White count normal, hemoglobin 12.9, hematocrit 38.9, platelet count normal. PT/INR and PTT unremarkable, consistent with Eliquis. Electrolytes, BUN, creatinine, LFTs, CK, troponin all unremarkable. IMPRESSION: The patient is an 83-year-old man with dementia, which is severe, chronic atrial flutter, on metoprolol and Eliquis, lives at home with a full-time stenotype machine operator, admitted to telemetry after a fall at home, after which he could not get up. PLAN: At this time, I would continue Eliquis and metoprolol. He needs full-time assistance. He may not be able to return home at this point. I will track down his EKG. An echocardiogram during the last visit revealed normal LV function, mild MR and mild AI. He can be out of bed to chair. He should ambulate only with assistance. He is a high fall risk. I will follow with you. I will make additional recommendations based on his clinical course. Overall, a conservative course of cardiac care is anticipated. Alexei Berkowitz MD MTDGenevieve
--- NOTE | 2018-06-11 18:22 | HP ---
DATE OF EXAM: 06/11/2018 CHIEF COMPLAINT AND HISTORY OF PRESENT ILLNESS: This is an 83-year-old male who has come in to the hospital with past medical history of dementia, Alzheimer's type; atrial flutter; and had a fall. The patient had a fall per the nut chopper. According to the notes, he was able to standup. He does not recall the incident. The patient was found to have rapid rate and so was admitted to the hospital for further management. The patient had atrial flutter, atrial fibrillation, and was given Cardizem and transferred to the telemetry for further management. REVIEW OF SYMPTOMS: Limited because of the patient's underlying dementia. ALLERGIES: No known drug allergies. MEDICATIONS: Home medications have been reviewed on the [facility]. The patient is on Eliquis, Lopressor, Risperdal, Ativan. PAST MEDICAL HISTORY: As above. FAMILY HISTORY: Unable to obtain. SOCIAL HISTORY: Unable to obtain. PHYSICAL EXAMINATION: VITAL SIGNS: Temperature is 97.7, pulse 60, blood pressure is 144/73, respirations 19, O2 saturation 96%. Height is 5.6 feet, weight is 240 pounds, BMI is 38. GENERAL: The patient lying in bed, uncomfortable, and in no acute distress. HEENT: Atraumatic and normocephalic. Anicteric sclerae. Moist mucosa. [place] conjunctivae. No oral lesions. NECK: No JVD, anterior and posterior adenopathy, thyromegaly, or bruits. CARDIOVASCULAR: S1 and S2 regular. No murmur, rubs, or gallop. LUNGS: Clear to auscultation bilaterally. No wheezes, rales, or rhonchi. ABDOMEN: Bowel sounds are positive. Soft, nontender and nondistended. No hepatosplenomegaly. No rebound and no guarding EXTREMITIES: No cyanosis, clubbing, or edema. NEUROLOGIC: Alert, awake, and oriented x1. No facial asymmetry. Tongue is midline. No uvula deviation. PSYCHIATRIC: The patient denies any hallucinations or depression. He has poor insight. GENITOURINARY: No CVA tenderness. VASCULAR: 2+ pulses in the carotid pulses and pedal pulses. SKIN: No erythema or nodules SPINE: Shows normal curvature. LABORATORY DATA: White count of 9.6, hemoglobin 12.9. INR is 1.4. Chemistry showed a sodium 142, potassium is 4.3, creatinine is 0.8. Chest x-ray done shows no active pulmonary disease. CT of the head done shows no acute intracranial abnormalities. EKG shows atrial flutter at a rate of 121. No ST-T changes. ASSESSMENT: 1. Atrial flutter/fibrillation. 2. A 1.6-cm meningioma. 3. Dementia, Alzheimer's type. PLAN: The patient is going to be admitted to the hospital. The patient's rate has been improved on Cardizem. He is going to continue Eliquis. He is going to be seen by Cardiology, Dr. Berkowitz. The patient is on Lopressor. He is going to continue with Risperdal. He is on a heart-healthy diet. I will speak to his person to notify, Alba, to give an update. Landry Ivory MD
== END 2018-06-11 18:15 | disposition home or self-care (01) ==
LOC: ED 23:29 → ERH 06-11 03:47 → 2RNO 06-11 05:45 → OBSVTOIN 06-11 06:58 → INTOOBSV 06-11 06:58
PROVIDERS: ADMIT Internal Medicine Nephrology; ATTEND Internal Medicine Nephrology
DX: I48.92 Unspecified atrial flutter (principal); I48.91 Unspecified atrial fibrillation; I10 Essential (primary) hypertension; G30.9 Alzheimer's disease, unspecified; F02.80 Dementia in other diseases classified elsewhere, unspecified severity, without behavioral disturbance, psychotic disturbance, mood disturbance, and anxiety; J32.0 Chronic maxillary sinusitis; J32.2 Chronic ethmoidal sinusitis; D32.9 Benign neoplasm of meninges, unspecified; H70.93 Unspecified mastoiditis, bilateral
CPT/HCPCS: 70450; 71045; 80053; 82550; 83615; 84484; 85027; 85610; 85730; 93005; 96374; 99285; G0378